=== PATIENT | male | born 1940 | race Caucasian/White ===

== ENCOUNTER → 2016-03-01 | Outpatient (CLI) | payer MEDICARE ==
[2016-03-01 10:09] LABS: Blood Urea Nitrogen 22 mg/dL (9-20); Non-African American GFR(MDRD) >60 (>60 ml/min/1.73 sqM)
--- NOTE | 2016-03-01 12:15 | CT ---
EXAMINATION TYPE: CT ChestAbdPelvis w con DATE OF EXAM: 03/01/2016 11:53 AM COMPARISON: 12/14/2015 HISTORY: Rectal carcinoma CONTRAST: 100 cc Omnipaque 300 FINDINGS: CHEST: Multiple pulmonary nodules are again noted. Right upper lobe lesion measures 2 cm on current a nd stable. Additional right upper nodules are present which are stable with the largest measuring 1.7 cm currently and are stable. A nodule measuring 8.5 mm, likely 6 mm on prior, axial image 31 nodule measures 8 mm on current and measured 3 mm on prior, image 27 right upper lobe shows a nodule measuri ng 11 mm which measured 5 mm on prior, at the nodule on axial image 26 measures 6 mm. In the right lo wer lobe the index lesion measures approximately 5.2 cm on current and measured approximately 3.6 on prior. Additional nodule in the right lower lobe measures 3.2 cm and measured 2.1 on prior. Smaller nodule a t the posterior costophrenic angle on the right measures 1 cm and stable. At the left lower lobe costophrenic angle the nodule measures 2.4 cm and measured only approximately 2.1 mm on prior. Lingula nodule measures approximately 14 mm and is stable. Superior segment left low er lobe nodule measures 2.5 cm stable.. Left upper lobe nodules towards the apex measure 1.5 cm curre ntly and stable. Pulmonary artery is prominent bilaterally measure greater than 3 cm, consider pulmonary artery hypert ension. No pleural or pericardial effusion. No mediastinal, accurate, or hilar adenopathy. Old right- sided rib fractures are again noted. ABDOMEN: The liver shows low attenuation. The patient is post cholecystectomy. The spleen, adrenal gl ands, kidneys, and pancreas are stable. Peripancreatic shotty adenopathy and celiac plexus shotty jay nopathy noted. Small hiatal hernia noted. PELVIS: Postop changes and soft tissue thickening locally are again noted, there is local colonic wal l thickening as on prior exam. Urinary bladder is normal. No free fluid. No sizable adenopathy. Small bowel folds show wall thickening in the pelvis likely due to post radiation change. Correlate clinic ally to exclude other etiologies including neoplasm Somewhat distended with no obvious evidence of ob struction. Extensive postsurgical changes are noted. IMPRESSION: 1. Majority of the pulmonary nodules are stable in size with 2 nodules demonstrating minimal increme ntal increase in size as measured above. 2. Stable postoperative change involving the pelvis including bowel wall thickening which appears chr onic may been the basis of posterior radiation changes. Correlate clinically to exclude other etiolog ies.
== END | disposition home or self-care (01) ==
LOC: RADPROMAIN 09:30
PROVIDERS: ATTEND Internal Medicine Hematology & Oncology
DX: C18.9 Malignant neoplasm of colon, unspecified (principal); R91.8 Other nonspecific abnormal finding of lung field; Z98.890 Other specified postprocedural states
CPT/HCPCS: 82565; 84520; 71260; 74177; 36415; Q9967

== ENCOUNTER → 2016-05-09 | Outpatient (CLI) | payer MEDICARE ==
[2016-05-09 09:49] LABS: Blood Urea Nitrogen 16 mg/dL (9-20); Non-African American GFR(MDRD) >60 (>60 ml/min/1.73 sqM)
--- NOTE | 2016-05-09 11:30 | CT ---
EXAMINATION TYPE: CT ChestAbdPelvis w con DATE OF EXAM: 05/09/2016 11:06 AM INDICATION: Colon cancer COMPARISON: 03/01/2016. CT DLP: 688.50 mGycm CONTRAST: Performed with Oral Contrast and with IV Contrast, patient injected with 100 ml mL of Omnipaque 300. TECHNIQUE: Axial images at 5 mm thick sections. Reconstructed images in the coronal plane. Delayed images through the kidneys. FINDINGS: CT CHEST: Portion of the thyroid visualized is normal. There is a suspicious spiculated 1.6 x 1.6 cm nodule in the left apex. This has enlarged. Series 4 im age 9. An adjacent 1.2 cm daughter nodule slightly inferior and posterior. At the same level is 0.6 c m nodules posterior medial. Series 4 image 12. There is a 0.7 cm nodule within the medial right upper lobe. Series 4 image 14. Large lobulated mass measuring 3.3 x 3.4 cm in the right suprahilar region. This has enlarged. Series 4 image 17. There are small adjacent daughter nodules measuring 0.7-0.5 cm in size. There is a 0.9 cm nodule within the medial superior left lung. Series 4 image 16. There is a 0.4 cm nodule within the left upper lobe. Series 4 image 18. There is a mass in the posterior left midlung measuring 4.1 x 3.4 cm. This has enlarged. Series 4 image 25. A right suprahilar nodule measu res 2.2 x 2.4 cm. A right middle lobe nodule which is lobulated measures 2.2 x 2.3 cm. There is an ad jacent daughter nodule measuring 0.9 cm. There is a right middle lobe nodule within the periphery jose suring 1.4 cm series 4 image 32. A lingular nodule measures 2.3 x 1.9 cm. This has enlarged. Series 4 image 32. A peripheral nodule in the right posterior lateral lung base measuring 0.7 cm. Series 4 im age 34. A large lobular mass is within the right lower lobe measuring 6.7 x 6.3 cm. This has enlarged . There is an adjacent as ago esophageal recess nodule measuring 2.6 x 2.5 cm. Series 4 image 38. Ser ies 4 image 37. A right middle lobe nodule measures 3.1 x 2.2 cm. This has enlarged. Series 4 image 3 9. There is an additional right lower lobe posterior medial lung base mass measuring 4.6 x 4.1 cm. Th is has enlarged. Posterior medial lung base nodule is present measuring 1.7 cm. A posterior left lung mass measures 3.3 x 4.5 cm. This has enlarged. Note is made of some coronary artery calcification. Portion of the thyroid visualized is normal. No s upraclavicular adenopathy is evident. Axillary adenopathy is not evident. No enlarged mediastinal jay nopathy is present. The ascending thoracic aorta at the level of the main pulmonary artery measures 4 .1 cm. The main pulmonary artery at the bifurcation measures 3.[address] ABDOMEN: Liver: Normal Spleen: Normal Pancreas: Somewhat atrophic. Adrenal glands: The adrenal glands are normal. Gallbladder: Normal Kidneys: No masses are evident. There is a moderate right hydronephrosis. Some subtle asymmetry of th e contrast excretion is present with slight delay on the right compared to the left. Hydroureter is p resent to the pelvis. Distal obstruction is not identified on these images. No cysts are present. De layed images were obtained through the kidneys which accentuate the delayed contrast excretion on the right. Aorta: Vascular calcification is within the aorta. Inferior vena cava: Normal. CT PELVIS: Loops of bowel distended with oral contrast normal. Fecal debris is within the transverse descending and ascending colon. Postsurgical changes are within the sigmoid colon. Some wall thickening of the d istal sigmoid colon may be present. There are loops of bowel which are incompletely distended or lack oral contrast limiting their evaluation. Appendix: Not identified. Urinary bladder: Normal. Genitourinary structures: Prostate appears unremarkable. Osseous structures: No suspicious lytic or sclerotic lesions. Facet changes are in the lower lumbar s pine. Old right rib fractures with some deformity are evident. IMPRESSIONS: 1. Multiple lung masses and pulmonary nodules suspicious for metastatic disease. These are enlarging and may be more numerous than the comparison.
== END | disposition home or self-care (01) ==
LOC: RADPROMAIN 09:02
PROVIDERS: ATTEND Internal Medicine Hematology & Oncology
DX: Z03.89 Encounter for observation for other suspected diseases and conditions ruled out (principal); R91.8 Other nonspecific abnormal finding of lung field; C18.9 Malignant neoplasm of colon, unspecified
CPT/HCPCS: 82565; 84520; 71260; 74177; 36415; Q9967

== ENCOUNTER → 2016-07-13 | Outpatient (CLI) | payer MEDICARE ==
[2016-07-13 12:50] LABS: Blood Urea Nitrogen 16 mg/dL (9-20); Non-African American GFR(MDRD) >60 (>60 ml/min/1.73 sqM)
--- NOTE | 2016-07-13 15:01 | CT ---
EXAMINATION TYPE: CT ChestAbdPelvis w con DATE OF EXAM: 07/13/2016 2:32 PM COMPARISON: CT cap May 09, 2016 HISTORY: Follow up metastatic Colon cancer CT DLP: 1720 mGycm. Automated Exposure Control for Dose Reduction was Utilized. CONTRAST: CT scan of the thorax, abdomen and pelvis is performed with oral and with IV Contrast, patient inject ed with 100 mL of Omnipaque 300. FINDINGS: LUNGS: Innumerable metastatic nodules and masses are redemonstrated scattered throughout both lungs b ilaterally. Largest lobulated nodule superior aspect left lower lobe measures 3.7 cm on long axis axi al image 20 versus 4.1 cm long axis prior exam. Largest nodule posterior left lung base measures 5.2 cm on long axis image 49 versus 4.5 cm on prior study. Largest nodule posteriorly right lower lobe me asures 5.1 cm long axis axial image 46 versus 4.6 cm prior study axial image 51. Largest nodule just superior to this measures 8.0 cm on long axis axial image 39 versus 6.8 cm on prior study axial image 43. Largest lobulated nodule right upper lobe measures 4.2 cm long axis axial image 18 versus 3.5 cm on prior study. No pleural effusion or pneumothorax is seen bilaterally. MEDIASTINUM: There are no greater than 1 cm hilar or mediastinal lymph nodes. No cardiomegaly or pe ricardial effusion is seen. Coronary artery calcification is redemonstrated. OTHER: There is stable right subclavian Mediport catheter with tip in right atrium. LIVER/GB: Cholecystectomy clips are redemonstrated. PANCREAS: No significant abnormality is seen. SPLEEN: No significant abnormality is seen. ADRENALS: No significant abnormality is seen. KIDNEYS: There is persistent moderate to severe right-sided hydronephrosis and delayed excretion from right kidney. BOWEL: Oral contrast does not reach colonic level making evaluation of distal bowel suboptimal. There is no suspicious dilatation of stomach or duodenal sweep. There are contrast dilated small bowel loo ps in the midabdomen with air-fluid levels. There is transition at suture site in the mid pelvis near axial image 100. Near this this level there is suspicious severe wall thickening worrisome for neopl asm involving the rectum. Consider adhesions at this level. There is moderate prominence of fecal mat erial in the colon. Some nondilated distal small bowel in the right lower quadrant is felt present. GENITAL ORGANS: No gross abnormality seen. LYMPH NODES: No greater than 1cm abdominal or pelvic lymph nodes are appreciated. OSSEOUS STRUCTURES: New sclerotic focus posterior left T6 vertebra on axial image 22 and coronal imag e 64 is noted. Old right lateral rib fractures are redemonstrated. OTHER: No significant additional abnormality is seen. IMPRESSION: 1. Innumerable pulmonary metastatic nodules and masses redemonstrated. They are felt slightly increas ed in size. By RECIST criteria there is overall stable disease however in the lungs. There is however new suspicious sclerotic focus T6 vertebra worrisome for new osseous metastatic disease. 2. Suspect recurrent or residual neoplasm near surgical sutures in the rectosigmoid colon as there is persistent suspicious moderate to severe wall thickening. There is fairly moderate diffuse colonic f ecal stasis proximal to this level. In addition there is suspected adhesions causing partial or devel oping small bowel obstruction in mid to distal small bowel with dilated contrast filled small bowel l oops having abrupt transition near this level. A Yellow message has been communicated to Guzman Fong MD via the [employer] Critical Result system on 07/13/2016 2:56 PM, Message ID [id number].
== END | disposition home or self-care (01) ==
LOC: RADCTMAIN 12:09
PROVIDERS: ATTEND Internal Medicine Hematology & Oncology
DX: C78.00 Secondary malignant neoplasm of unspecified lung (principal); C18.9 Malignant neoplasm of colon, unspecified
CPT/HCPCS: 82565; 84520; 71260; 74177; 36415; Q9967

== ENCOUNTER 2016-08-27 20:19 | Inpatient (IN) | payer MEDICARE ==
[2016-08-27] MEDS ORDERED: HYDROmorphone 1 MG/ML 1 ML SYRINGE IVP STA (21:09)
[2016-08-27] MEDS ORDERED: SODIUM CHLORIDE 0.9% 500 ML IV STA (21:09)
[2016-08-27] MEDS ORDERED: SODIUM CHLORIDE 0.9% 1,000 ML IV STA (21:09)
--- NOTE | 2016-08-27 21:13 | ED ---
General Adult HPI - General Chief complaint: Chest Pain Stated complaint: pain control-sent by Dr. Fong Time Seen by Provider: 08/27/16 20:58 Source: patient, family, RN notes reviewed Mode of arrival: wheelchair Limitations: no limitations - History of Present Illness Initial comments: Patient is a pleasant 76-year-old male presenting to the emergency department complaining of pain. Patient has pain throughout his body. Majority of the pain is in the right side of the thorax and right shoulder. Patient has known metastatic colon cancer. Treatment has been discontinued secondary to progression of disease. Patient has known bony metastasis including the spine and lungs. Call was received by Dr. Cueva prior to patient arrival who states patient may be a candidate for hospice. He requests medical admission for pain control. - Related Data Home Medications Medication Instructions Recorded Confirmed Bifidobacterium Infantis [Align] 4 mg PO QAM 10/12/14 08/27/16 Omeprazole [PriLOSEC] 20 mg PO AC-BRKFST 10/12/14 08/27/16 ALPRAZolam [Xanax] 0.5 mg PO TID 08/27/16 08/27/16 Acetaminophen Tab [Tylenol Tab] 500 mg PO Q6H PRN 08/27/16 08/27/16 Cholestyramine (with Sugar) 4 gm PO QID 08/27/16 08/27/16 [Cholestyramine Packet] HYDROcodone/APAP 5-325MG [[place] 1 tab PO TID 08/27/16 08/27/16 5-325] Mirtazapine [Remeron] 30 mg PO HS 08/27/16 08/27/16 diphenhydrAMINE HCL [Benadryl] 50 mg PO HS 08/27/16 08/27/16 Allergies Allergy/AdvReac Type Severity Reaction Status Date / Time No Known Allergies Allergy Verified 08/27/16 21:32 Review of Systems ROS Statement: Those systems with pertinent positive or pertinent negative responses have been documented in the HPI. ROS Other: All systems not noted in ROS Statement are negative. Constitutional: Denies: fever Eyes: Denies: eye pain ENT: Denies: ear pain Respiratory: Reports: dyspnea (Only with exertion). Denies: cough Cardiovascular: Reports: chest pain Endocrine: Reports: fatigue Gastrointestinal: Reports: nausea. Denies: abdominal pain Genitourinary: Denies: dysuria Musculoskeletal: Reports: back pain Skin: Denies: rash Neurological: Reports: weakness (Diffuse) Past Medical History Past Medical History: Cancer, GERD/Reflux, Pneumonia Additional Past Medical History / Comment(s): 11/19/14 Pt is direct admission with diagnosis of jaundice. Pt states his LFT are elevated per his doctor's office. He has chronic diarrhea. He started noticing blood in his urine - he drinks alot of fluid and it turns dark orange. He states his bile dug is plugged. Pt has metastatic colon cancer stage 4 mets to lung\liver- has been on chemotherapy since 09/04/13 except for past 4 weeks so he could go bear hunting. Has also had radiation tx with last one 02/2014. Other HX: Pt recently admitted to [facility] with discharge diagnosis's including: acute cholecystitis-had lap shelly and had a TIA post surgery, acute delirium which resolved, echo done 10/14/14 showed L ventricular systolic function normal with ER 60-65%, R ventricle severely enlarged, mild to mod tri and mitral regurg, chronic insomnia, leukocytosis which improved and hyperkalemia which improved, hypoalbuminemia thought to be from poor nutrition and moderate protein calorie malnutrition. Pt states he had pneumonia twice in 2011. History of Any Multi-Drug Resistant Organisms: None Reported Past Surgical History: Cholecystectomy Additional Past Surgical History / Comment(s): Partial colectomies x 2 with first time for benign growth and then 18 months later a follow up colonoscopy showed malignant tumor, pt has had numerous colonoscopies. Past Anesthesia/Blood Transfusion Reactions: No Reported Reaction Additional Past Anesthesia/Blood Transfusion Reaction / Comment(s): Pt has recieved numerous pints of blood without reaction. Past Psychological History: No Psychological Hx Reported Smoking Status: Former smoker Past Alcohol Use History: None Reported Past Drug Use History: None Reported - Past Family History Father Family Medical History: Cancer Additional Family Medical History / Comment(s): colon CA- of this at 80 yrs of age. Mother Additional Family Medical History / Comment(s): pancreatic CA- of this at 6 yrs of age. General Exam Limitations: no limitations General appearance: alert, in no apparent distress Head exam: Present: atraumatic Eye exam: Present: normal appearance, PERRL ENT exam: Present: normal oropharynx Neck exam: Present: normal inspection Respiratory exam: Present: normal lung sounds bilaterally, chest wall tenderness Cardiovascular Exam: Present: regular rate, normal rhythm GI/Abdominal exam: Present: soft. Absent: tenderness Extremities exam: Present: pedal edema (+1 bilateral). Absent: calf tenderness Back exam: Present: tenderness (Diffuse) Neurological exam: Present: alert Psychiatric exam: Present: normal affect, normal mood Skin exam: Present: normal color Course Vital Signs 08/27/16 20:52 Temperature 97.1 F L Pulse Rate 95 Respiratory 18 Rate Blood Pressure 116/75 O2 Sat by Pulse 95 Oximetry EKG Findings - EKG Comments: EKG Findings:: Normal sinus rhythm 89. MD 144. QRS 84. QT 386. QTc 469. Normal axis. Normal QRS. Normal ST-T. Medical Decision Making - Medical Decision Making Dr. Julien was paged. Case was discussed with practitioner Martha, who will admit for Dr. Shipman, covering for Dr. june, who admits for Dr. Villalobos. Patient is reevaluated and significantly improved with pain medication. Patient and family were updated on results and plan. - Lab Data Result diagrams: 08/27/16 21:58 08/27/16 21:58 Lab Results 08/27/16 08/27/16 08/27/16 Range/Units 21:58 21:58 21:58 WBC 12.5 H (3.8-10.6) k/uL RBC 3.83 L (4.30-5.90) m/uL Hgb 10.7 L (13.0-17.5) gm/dL Hct 33.4 L (39.0-53.0) % MCV 87.4 D (80.0-100.0) fL MCH 28.1 (25.0-35.0) pg MCHC 32.1 (31.0-37.0) g/dL RDW 15.7 H (11.5-15.5) % Plt Count 323 (150-450) k/uL Neutrophils % 84 % Lymphocytes % 7 % Monocytes % 6 % Eosinophils % 2 % Basophils % 0 % Neutrophils # 10.5 H (1.3-7.7) k/uL Lymphocytes # 0.8 L (1.0-4.8) k/uL Monocytes # 0.7 (0-1.0) k/uL Eosinophils # 0.2 (0-0.7) k/uL Basophils # 0.0 (0-0.2) k/uL PT (9.0-12.0) sec INR (<1.1) APTT (22.0-30.0) sec Sodium 135 L (137-145) mmol/L Potassium 3.9 (3.5-5.1) mmol/L Chloride 104 (98-107) mmol/L Carbon Dioxide 22 (22-30) mmol/L Anion Gap 9 mmol/L BUN 14 (9-20) mg/dL Creatinine 1.00 (0.66-1.25) mg/dL Est GFR (MDRD) Af Amer >60 (>60 ml/min/1.73 sqM) Est GFR (MDRD) Non-Af >60 (>60 ml/min/1.73 sqM) Glucose 99 (74-99) mg/dL Calcium 8.5 (8.4-10.2) mg/dL Magnesium 1.5 L (1.6-2.3) mg/dL Total Bilirubin 0.5 (0.2-1.3) mg/dL AST 131 H (17-59) U/L ALT 83 H (21-72) U/L Alkaline Phosphatase 232 H (38-126) U/L Total Creatine Kinase 30 L (55-170) U/L CK-MB (CK-2) 0.6 (0.0-2.4) ng/mL CK-MB (CK-2) Rel Index 2.0 Troponin I <0.012 (0.000-0.034) ng/mL Total Protein 5.6 L (6.3-8.2) g/dL Albumin 2.7 L (3.5-5.0) g/dL 08/27/16 Range/Units 21:58 WBC (3.8-10.6) k/uL RBC (4.30-5.90) m/uL Hgb (13.0-17.5) gm/dL Hct (39.0-53.0) % MCV (80.0-100.0) fL MCH (25.0-35.0) pg MCHC (31.0-37.0) g/dL RDW (11.5-15.5) % Plt Count (150-450) k/uL Neutrophils % % Lymphocytes % % Monocytes % % Eosinophils % % Basophils % % Neutrophils # (1.3-7.7) k/uL Lymphocytes # (1.0-4.8) k/uL Monocytes # (0-1.0) k/uL Eosinophils # (0-0.7) k/uL Basophils # (0-0.2) k/uL PT 11.2 (9.0-12.0) sec INR 1.1 (<1.1) APTT 29.2 (22.0-30.0) sec Sodium (137-145) mmol/L Potassium (3.5-5.1) mmol/L Chloride (98-107) mmol/L Carbon Dioxide (22-30) mmol/L Anion Gap mmol/L BUN (9-20) mg/dL Creatinine (0.66-1.25) mg/dL Est GFR (MDRD) Af Amer (>60 ml/min/1.73 sqM) Est GFR (MDRD) Non-Af (>60 ml/min/1.73 sqM) Glucose (74-99) mg/dL Calcium (8.4-10.2) mg/dL Magnesium (1.6-2.3) mg/dL Total Bilirubin (0.2-1.3) mg/dL AST (17-59) U/L ALT (21-72) U/L Alkaline Phosphatase (38-126) U/L Total Creatine Kinase (55-170) U/L CK-MB (CK-2) (0.0-2.4) ng/mL CK-MB (CK-2) Rel Index Troponin I (0.000-0.034) ng/mL Total Protein (6.3-8.2) g/dL Albumin (3.5-5.0) g/dL - Radiology Data Radiology results: image reviewed (Chest x-ray shows several lobular opacities bilaterally concerning for pulmonary masses. Questionable irregular appearance of the ribs.) Disposition Clinical Impression: Colorectal cancer, stage IV, Lung mass, Intractable pain Disposition: ADMITTED IP TO THIS [facility] Referrals: Abiodun Villalobos MD [Primary Care Provider] - 1-2 days
[2016-08-27 22:05] LABS: Basophils % (A) 0 %; CHCM 32.2; Eosinophils # (A) 0.2 k/uL (0-0.7); Eosinophils % (A) 2 %; HCT 33.4 % (39.0-53.0); HDW 2.89; HGB 10.7 gm/dL (13.0-17.5); Luc # (Auto) 0.26; Luc % (Auto) 2; Lymphocytes # (A) 0.8 k/uL (1.0-4.8); Lymphocytes % (A) 7 %; MCH 28.1 pg (25.0-35.0); MCHC 32.1 g/dL (31.0-37.0); Monocytes # (A) 0.7 k/uL (0-1.0); Monocytes % (A) 6 %; Neutrophils # (A) 10.5 k/uL (1.3-7.7); Neutrophils % (A) 84 %; RBC 3.83 m/uL (4.30-5.90); RDW 15.7 % (11.5-15.5); WBC 12.5 k/uL (3.8-10.6); WBC (Perox) 12.32
[2016-08-27 22:10] LABS: MCV 87.4 fL (80.0-100.0)
[2016-08-27 22:11] LABS: INR 1.1 (<1.1); Partial Thromboplastin Time 29.2 sec (22.0-30.0); Prothrombin Time 11.2 sec (9.0-12.0)
[2016-08-27 22:15] LABS: ALT 83 U/L (21-72); AST 131 U/L (17-59); Alkaline Phosphatase 232 U/L (38-126); Anion Gap 9 mmol/L; Blood Urea Nitrogen 14 mg/dL (9-20); Calcium 8.5 mg/dL (8.4-10.2); Carbon Dioxide 22 mmol/L (22-30); Chloride 104 mmol/L (98-107); Glucose 99 mg/dL (74-99); Magnesium 1.5 mg/dL (1.6-2.3); Non-African American GFR(MDRD) >60 (>60 ml/min/1.73 sqM); Potassium 3.9 mmol/L (3.5-5.1); Sodium 135 mmol/L (137-145); Total Bilirubin 0.5 mg/dL (0.2-1.3); Total Protein 5.6 g/dL (6.3-8.2)
[2016-08-27 22:20] LABS: Creatine Kinase 30 U/L (55-170)
[2016-08-27 22:33] LABS: Creatine Kinase MB 0.6 ng/mL (0.0-2.4); Troponin I <0.012 ng/mL (0.000-0.034)
--- NOTE | 2016-08-27 22:40 | XR ---
CXR 1 View INDICATION: Pain COMPARISON: Chest x-ray 10/14/14 FINDINGS: Single frontal view of the chest. There is a diogenes cath overlying the right chest with the distal tip of the catheter not well visualized, however appears to extend towards the right atrium. There is a 5.5 cm lobular opacity projecting over the right upper chest. Additionally, there is a large lobular opacity measuring approximately 8.9 cm in the right lower lung field. There is an additional nodular opacity projecting over the left lung apex. Increased bronchovascular markings. There is increasing size of the cardiomedistinal silhouette. There is suspected left pleural effusion. There are overlying leads. There is a tube like structure projecting over the right chest which may be a chest tube. The airway appears to be deviated to the right. There is an irregular appearance of the right lateral ribs. IMPRESSION: 1. Interval development of several lobular opacities projecting over the right lung field with an additional opacity over the left lung apex concerning for pulmonary masses. A dedicated CT chest is recommended for further evaluation. Irregular appearance of the right ribs may be projectional, however this may also be evaluated by a CT chest. 2. Increased cardiomedistinal silhouette with increase bronchovascular markings which may be seen in the setting of congestive heart failure. 3. Tube like structure projecting over the right chest which may be a chest tube. Please correlate clinically.
[2016-08-27] MEDS ORDERED: MAGNESIUM OXIDE 400 MG TAB PO STA (22:42)
[2016-08-27] MEDS ORDERED: NALOXONE 0.4 MG/ML 1 ML VIAL IV PRN (23:26)
[2016-08-27] MEDS ORDERED: HYDROcodone/APAP 5-325MG 1 EACH TAB PO PRN (23:26)
[2016-08-28] MEDS: HYDROmorphone 1 MG/ML 1 ML SYRINGE IV PRN ×3 (00:38→10:42)
[2016-08-28] MEDS: SODIUM CHLORIDE 0.9% 1,000 ML IV SCH (00:56)
--- NOTE | 2016-08-28 11:08 | P.CONS ---
History of Present Illness - Reason for Consult Consult date: 08/28/16 Intractable pain. Metastatic colon cancer - History of Present Illness The patient is a 76-year-old gentleman well known to our service. He was diagnosed with the sigmoid adenocarcinoma in 2002, treated with the surgery. He developed recurrence at the anastomotic site in 06/09, T4, with a noncontiguous tumor deposits in the justin-rectal tissues. He was also noted to have a metastatic lung nodule, in 06/09, confirmed by PET scan. He was treated with the XELOX regimen, followed by Xeloda and radiation. He progressed again in 05/10, and was treated with the FOLFIRI/Vectibix. He was admitted in 11/10 due to biliary obstruction and had stent placement done. At that time was noted to be having some progression in the lung also. The patient has had multiple lines of treatment since then, most recently IV irinotecan as a single agent with the last dose about 4 weeks ago. 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 He subsequently developed progression, especially in the skeletal system on the right side. He was evaluated at the [facility] in [place], about a month ago for clinical trials. However his performance status was too poor to permit enrollment. Hospice was recommended by Dr. Fong about 2 weeks ago, but the patient wanted to wait to see if he could improve enough to go on the clinical trial. The family had called yesterday, stating that the patient was in intractable pain. He had had no improvement in his performance status and had actually deteriorated with decreased appetite and progressive weakness. They were therefore directed to come to the emergency room, and the patient was subsequently admitted for pain control. Review of Systems Constitutional: Reports fatigue, Reports poor appetite, Reports weight loss Eyes: denies blurred vision, denies pain Ears: deny: decreased hearing, ear discharge, earache, tinnitus Ears, nose, mouth and throat: Denies headache, Denies sore throat Cardiovascular: Reports dyspnea on exertion Respiratory: Reports dyspnea Gastrointestinal: Reports diarrhea (Still persistent. Controlled partially with Questran) Genitourinary: Reports as per HPI (No specific complaints) Musculoskeletal: Reports as per HPI (Significant pain, right shoulder, right chest wall and right arm), Reports muscle weakness Integumentary: Denies pruritus, Denies rash Neurological: Reports weakness Psychiatric: Reports mood swings Endocrine: Reports fatigue, Reports weight change Hematologic/Lymphatic: Reports as per HPI Past Medical History Past Medical History: Cancer, GERD/Reflux, Pneumonia Additional Past Medical History / Comment(s): 11/19/14 Pt is direct admission with diagnosis of jaundice. Pt states his LFT are elevated per his doctor's office. He has chronic diarrhea. He started noticing blood in his urine - he drinks alot of fluid and it turns dark orange. He states his bile dug is plugged. Pt has metastatic colon cancer stage 4 mets to lung\liver- has been on chemotherapy since 09/04/13 except for past 4 weeks so he could go bear hunting. Has also had radiation tx with last one 02/2014. Other HX: Pt recently admitted to [facility] with discharge diagnosis's including: acute cholecystitis-had lap shelly and had a TIA post surgery, acute delirium which resolved, echo done 10/14/14 showed L ventricular systolic function normal with ER 60-65%, R ventricle severely enlarged, mild to mod tri and mitral regurg, chronic insomnia, leukocytosis which improved and hyperkalemia which improved, hypoalbuminemia thought to be from poor nutrition and moderate protein calorie malnutrition. Pt states he had pneumonia twice in 2011. History of Any Multi-Drug Resistant Organisms: None Reported Past Surgical History: Cholecystectomy Additional Past Surgical History / Comment(s): aaa repair; Partial colectomies x 2 with first time for benign growth and then 18 months later a follow up colonoscopy showed malignant tumor, pt has had numerous colonoscopies. Past Anesthesia/Blood Transfusion Reactions: No Reported Reaction Additional Past Anesthesia/Blood Transfusion Reaction / Comm: Pt has recieved numerous pints of blood without reaction. Past Psychological History: No Psychological Hx Reported Additional Psychological History / Comment(s): Pt is ; lives with who is health care facilities inspector; He uses no assistive device. Smoking Status: Former smoker Past Alcohol Use History: None Reported Past Drug Use History: None Reported - Past Family History Father Family Medical History: Cancer Additional Family Medical History / Comment(s): colon CA- of this at 80 yrs of age. Mother Additional Family Medical History / Comment(s): pancreatic CA- of this at 6 yrs of age. Medications and Allergies Home Medications Medication Instructions Recorded Confirmed Type Bifidobacterium Infantis [Align] 4 mg PO QAM 10/12/14 08/27/16 History Omeprazole [PriLOSEC] 20 mg PO AC-BRKFST 10/12/14 08/27/16 History ALPRAZolam [Xanax] 0.5 mg PO TID 08/27/16 08/27/16 History Acetaminophen Tab [Tylenol Tab] 500 mg PO Q6H PRN 08/27/16 08/27/16 History Cholestyramine (with Sugar) 4 gm PO QID 08/27/16 08/27/16 History [Cholestyramine Packet] HYDROcodone/APAP 5-325MG [[place] 1 tab PO TID 08/27/16 08/27/16 History 5-325] Mirtazapine [Remeron] 30 mg PO HS 08/27/16 08/27/16 History diphenhydrAMINE HCL [Benadryl] 50 mg PO HS 08/27/16 08/27/16 History Allergies Allergy/AdvReac Type Severity Reaction Status Date / Time No Known Allergies Allergy Verified 08/27/16 21:32 Physical Exam Vitals: Vital Signs Temp Pulse Pulse Resp BP BP Pulse Ox 08/28/16 08:41 96 08/28/16 08:00 96 18 08/28/16 07:00 98 F 96 18 128/85 95 08/28/16 01:24 80 20 120/78 99 08/27/16 22:54 88 18 110/76 08/27/16 21:54 84 18 111/74 94 L 08/27/16 20:54 88 16 121/80 93 L 08/27/16 20:52 97.1 F L 95 18 116/75 95 Intake and Output 08/27/16 08/28/16 08/28/16 22:59 06:59 14:59 Intake Total 160 Balance 160 Intake: IV 160 Sodium Chloride 0.9% 1, 160 000 ml @ 20 mls/hr IV . Q24H [facility] Rx#:[id number] Other: Voiding Method Toilet Weight 68.946 kg 67.585 kg - Constitutional General appearance: no acute distress - EENT Eyes: EOMI, PERRLA ENT: hearing grossly normal, normal oropharynx Ears: right: dull - Neck Neck: no lymphadenopathy - Respiratory Respiratory: bilateral: CTA - Cardiovascular Rhythm: regular Heart sounds: normal: S1, S2 - Gastrointestinal General gastrointestinal: normal bowel sounds, soft - Integumentary Integumentary: normal - Neurologic Neurologic: CNII-XII intact - Musculoskeletal Musculoskeletal: generalized weakness, strength equal bilaterally - Psychiatric Psychiatric: A&O x's 3, appropriate affect Results CBC & Chem 7: 08/27/16 21:58 08/27/16 21:58 Labs: Abnormal Lab Results - Last 24 Hours (Table) 08/27/16 08/27/16 08/27/16 Range/Units 21:58 21:58 21:58 WBC 12.5 H (3.8-10.6) k/uL RBC 3.83 L (4.30-5.90) m/uL Hgb 10.7 L (13.0-17.5) gm/dL Hct 33.4 L (39.0-53.0) % RDW 15.7 H (11.5-15.5) % Neutrophils # 10.5 H (1.3-7.7) k/uL Lymphocytes # 0.8 L (1.0-4.8) k/uL Sodium 135 L (137-145) mmol/L Magnesium 1.5 L (1.6-2.3) mg/dL AST 131 H (17-59) U/L ALT 83 H (21-72) U/L Alkaline Phosphatase 232 H (38-126) U/L Total Creatine Kinase 30 L (55-170) U/L Total Protein 5.6 L (6.3-8.2) g/dL Albumin 2.7 L (3.5-5.0) g/dL Chest x-ray: report reviewed CT scan - abdomen: report reviewed CT scan - chest: report reviewed CT scan - pelvis: report reviewed (Computed tomography scan of the chest abdomen and pelvis from 07/12, as well as from 05/12 reviewed. 07/12 study noted the innumerable pulmonary nodules, with some progression compared to the last study) Assessment and Plan (1) Intractable pain Narrative/Plan: This is cancer related, due to progression in the lungs are likely in the right upper skeletal system. The patient was on [place] 5/325 at home, which was not effective. He feels much more comfortable with IV pain medications. His regimen will be adjusted. He will be started on fentanyl 25. Dilaudid will be discontinued, and instead we'll use IV morphine when necessary. He can be discharged home on fentanyl, and oral morphine or higher strength [place]a for breakthrough. Status: Acute (2) Colorectal cancer, stage IV Narrative/Plan: The patient has progressed through multiple lines of therapy. Hospice was discussed with him by Dr. humphries about 2 weeks ago but did not sign on at the time , as noted in the HPI. His performance status has progressively declined since then, and that he is accepting of the fact now that he would not be a candidate for clinical trials. For hospice was again discussed with him and his . He is agreeable to sign on. The case was discussed with the acting service, as well as the hospice service. Consult for hospice was placed. Status: Acute
[2016-08-28] MEDS: CHOLESTYRAMINE (WITH SUGAR) 4 GM PACKET PO SCH ×3 (13:11→21:55)
[2016-08-28] MEDS: MORPHINE SULFATE 2 MG/ML SYRINGE IVP PRN ×4 (13:12→23:19)
[2016-08-28] MEDS: ONDANSETRON 4 MG/2 ML VIAL IVP PRN ×2 (15:51→21:48)
[2016-08-29] MEDS: SODIUM CHLORIDE 0.9% 1,000 ML IV SCH (01:44)
[2016-08-29] MEDS: MORPHINE SULFATE 2 MG/ML SYRINGE IVP PRN ×4 (02:04→10:14)
[2016-08-29] MEDS: CHOLESTYRAMINE (WITH SUGAR) 4 GM PACKET PO SCH (07:39)
[2016-08-29 08:16] VITALS: BP 136/80; PULSE 96; RESP 20; TEMP 97.6
--- NOTE | 2016-09-03 13:42 | HP ---
CHIEF COMPLAINTS: Diffuse pain. HISTORY OF PRESENT ILLNESS: This 76 year old gentleman with past medical history of pneumonia, history of GERD, history of colon cancer metastatic Stage IV was complaining of severe pain especially in the upper part of the back and was admitted for further evaluation and treatment. There is no history of fever, rigors or chills. There is no history of headache, loss of consciousness, seizures. PAST MEDICAL HISTORY: History of cholecystectomy, history of colon cancer. MEDICATIONS: Prior to admission include: 1. Tylenol. 2. Prilosec. 3. Remeron. ALLERGIES: None. FAMILY HISTORY: History of cancer in the family. SOCIAL HISTORY: History of alcohol. Previous history of smoking. REVIEW OF SYSTEMS: ENT: No diminished vision. No diminished hearing. Cardiovascular: no angina. Respiratory: noted. GI: As mentioned. : No dysuria. NERVOUS SYSTEM: No numbness, weakness. ALLERGY/IMMUNOLOGY: No asthma or hayfever. MUSCULOSKELETAL: As mentioned earlier. HEMATOLOGY/ONCOLOGY: No history of anemia. ENDOCRINE: No history of diabetes or hypothyroidism. CONSTITUTIONAL: As mentioned earlier. DERMATOLOGY: Negative. RHEUMATOLOGY: Negative. PSYCHIATRIC: As mentioned earlier. PHYSICAL EXAMINATION: Alert and oriented times three. Pulse 96. Blood pressure 137/80. Respirations 20. Temperature 97.7, pulse ox 93% on room air. HEENT: Conjunctivae normal. Oral mucosa moist. NECK: No JVD. CARDIOVASCULAR: S1, S2 muffled. RESPIRATORY: Breath sounds diminished at the bases. A few rhonchi. No crackles. ABDOMEN: Soft, nontender. LEGS: No edema. No swelling. NERVOUS SYSTEM: No focal deficits. LABS: WBC 12.5, hemoglobin 10.7. Other labs noted. ASSESSMENT: 1. Colon cancer, metastatic Stage IV. 2. Severe intractable pain possibly secondary to metastasis. 3. Increased WBC. 4. Anemia. 5. Increased AST/ALT. RECOMMENDATIONS AND DISCUSSION: Continue current medications. Continue symptomatic treatment. Continue with IV. Prognosis guarded. Hematology/Oncology consultation. Currently the patient is NO CODE. Code status will be discussed further. Further recommendations to follow. MTDD
--- NOTE | 2016-09-04 14:51 | DS ---
FINAL DIAGNOSES: 1. Colon cancer metastasis Stage IV. 2. Severe intractable pain secondary to malignancy and metastasis. 3. Increased WBC. 4. Anemia of chronic malignancy. 5. Increased AST/ALT secondary to malignancy. DISCHARGE DISPOSITION: The patient is being discharged in stable condition with guarded prognosis. The patient is being discharged to hospice. HISTORY OF PRESENT ILLNESS: This 76 year old gentleman with past medical history of multiple medical problems admitted with colon cancer and intractable pain secondary to METS. The patient treated symptomatically. Dr. Julien saw the patient. Discussion was held and Hospice was recommended. On exam, vital signs are stable. Cardiovascular: S1, S2. Abdomen soft. Nervous system: No focal deficits. DISCHARGE ADVICE AND MEDICATIONS: 1. Tylenol 500 mg q6h prn. 2. Xanax 0.5 t.i.d. 4. Cholestyramine 4 gm q.i.d. 5. Benadryl. 6. Remeron prn. 7. The rest of the medications per hospice. MTDD
== END 2016-08-29 11:55 | disposition hospice, home (50) | DRG 948 ==
LOC: EC 20:19 → 5ONC 23:26
PROVIDERS: ADMIT Hospitalist; ATTEND Hospitalist
DX: G89.3 Neoplasm related pain (acute) (chronic) (principal); C78.00 Secondary malignant neoplasm of unspecified lung; C78.7 Secondary malignant neoplasm of liver and intrahepatic bile duct; E44.0 Moderate protein-calorie malnutrition; R06.00 Dyspnea, unspecified; C79.51 Secondary malignant neoplasm of bone; E88.09 Other disorders of plasma-protein metabolism, not elsewhere classified; C18.7 Malignant neoplasm of sigmoid colon; C79.89 Secondary malignant neoplasm of other specified sites; K52.9 Noninfective gastroenteritis and colitis, unspecified; M62.81 Muscle weakness (generalized); Z66 Do not resuscitate; Z51.5 Encounter for palliative care; D72.829 Elevated white blood cell count, unspecified; D63.0 Anemia in neoplastic disease; R74.0 Nonspecific elevation of levels of transaminase and lactic acid dehydrogenase [LDH]; I36.1 Nonrheumatic tricuspid (valve) insufficiency; I34.0 Nonrheumatic mitral (valve) insufficiency; F51.04 Psychophysiologic insomnia; K21.9 Gastro-esophageal reflux disease without esophagitis; Z79.899 Other long term (current) drug therapy; Z86.73 Personal history of transient ischemic attack (TIA), and cerebral infarction without residual deficits; Z87.891 Personal history of nicotine dependence; Z80.0 Family history of malignant neoplasm of digestive organs; Z79.891 Long term (current) use of opiate analgesic; Z90.49 Acquired absence of other specified parts of digestive tract; Z87.01 Personal history of pneumonia (recurrent); Z92.21 Personal history of antineoplastic chemotherapy; Z92.3 Personal history of irradiation; Z86.79 Personal history of other diseases of the circulatory system; Z00.6 Encounter for examination for normal comparison and control in clinical research program; Z68.21 Body mass index [BMI] 21.0-21.9, adult
CPT/HCPCS: 36415; 71010; 80053; 82550; 82553; 83735; 84484; 85025; 85610; 85730; 93005; 96361; 96374; 96376; 99285